=== PATIENT | male | born 1930 | race Hispanic/Latino ===

== ENCOUNTER 2017-09-09 15:56 | Inpatient (IN) | payer MEDICARE, OTHER ==
[~2017-09-09] VITALS: Ht 177.8 cm; Wt 61.0 kg
[2017-09-09 16:34] LABS: HEMATOCRIT 21.5 % (42-54); MEAN CORPUSCULAR HEMOGLOBIN 28.1 pg (27.0-33.0); MEAN CORPUSCULAR HGB CONC 30.7 g/dL (32.0-36.0); MEAN CORPUSCULAR VOLUME 91.4 fL (79-99); PLATELET COUNT (AUTO) 205 K/uL (130-400); RED BLOOD CELL COUNT(AUTO) 2.35 MIL/uL (4.50-6.20); RED CELL DISTRIBUTION WIDTH 14.2 % (11.0-15.5); WHITE BLOOD COUNT (AUTO) 25.9 K/uL (4.8-10.8)
[2017-09-09 16:45] LABS: CREATININE 2.3 mg/dL (0.5-1.5); POTASSIUM 5.7 mmol/L (3.5-5.1)
[2017-09-09] MEDS ORDERED: PANTOPRAZOLE SODIUM 80 MG in NS 100ML IVP SCH (16:45)
[2017-09-09 16:51] LABS: INR 0.98 (0.85-1.15); PARTIAL THROMBOPLASTIN TIME 22.2 SEC (26.3-35.5); PROTHROMBIN TIME 10.3 SEC (9.6-11.6)
[2017-09-09 17:09] LABS: ALBUMIN 3.8 g/dL (3.5-5.0); BILIRUBIN,TOTAL 0.4 mg/dL (0.2-1.0); CREATINE KINASE MB 2.6 ng/mL (0.5-3.6); TOTAL PROTEIN, SERUM 6.4 g/dL (6.0-8.3)
[2017-09-09 17:23] LABS: BASOPHILS % (MANUAL) 2 % (0-2); EOSINOPHILS % (MANUAL) 1 % (1-6); LYMPHOCYTES % (MANUAL) 79 % (22-44); MAN.DIFF COMMENT-IMPRESSION MANUAL DIFFERENTIAL; PLATELET MORPHOLOGY COMMENT ADEQUATE; REACTIVE LYMPHOCYTES 2 % (0-0); SEGMENTED NEUTROPHILS % 16 % (40-70)
[2017-09-09 17:43] LABS: APPEARANCE,URINE Clear (CLEAR); BILIRUBIN,URINE Negative (NEGATIVE); COLOR,URINE Yellow (YELLOW); GLUCOSE, URINE (UA) Negative (NEGATIVE); KETONES,URINE Trace mg/dL (NEGATIVE); LEUKOCYTE ESTERASE ,URINE Trace (NEGATIVE); NITRATE,URINE Negative (NEGATIVE); OCCULT BLOOD,URINE Negative (NEGATIVE); PROTEIN,URINE Negative (NEGATIVE); UROBILINOGEN,URINE 0.2 mg/dL (0.2-1.0)
[2017-09-09] MEDS ORDERED: ONDANSETRON HCL 4 MG/2 ML VIAL IV PRN (17:45)
[2017-09-09] MEDS ORDERED: MAG HYDROX/AL HYDROX/SIMETH ES 30 ML SUSP UDCUP PO PRN (17:45)
[2017-09-09] MEDS ORDERED: ACETAMINOPHEN-CODEINE 300/30MG TAB PO PRN (17:45)
[2017-09-09] MEDS ORDERED: ACETAMINOPHEN 325 MG TAB PO PRN ×2 (17:45)
[2017-09-09] MEDS ORDERED: GUAIFENESIN-DM 200/20 MG 10 ML PO PRN (17:45)
[2017-09-09 18:02] LABS: BACTERIA,URINE Few /HPF (None Seen); RBC,URINE None Seen /HPF (0-1); SQUAMOUS EPITHELIAL CELL,UR 0-2 /LPF (0-2)
[2017-09-09 18:14] LABS: RETICULOCYTE % (AUTO) 3.9 % (0.42-2.23)
[2017-09-09 18:37] LABS: % IRON SATURATION 3.8 % (30-44)
[2017-09-09] MEDS ORDERED: PEG 3350/NA SULF,BICARB,CL/KCL 4000 ML SOLN PO ONE (22:00)
[2017-09-09] MEDS ORDERED: LACTULOSE 20 GM/30 ML UDCUP ONE (22:18)
[2017-09-09] MEDS ORDERED: MAGNESIUM CITRATE 296 ML SOLUTION ONE (22:18)
[2017-09-09 23:05] VITALS: BP 126/64
[2017-09-10] VITALS (19 sets, daily range): BP systolic 25–140; BP diastolic 49–85
[2017-09-10] MEDS ORDERED: LISI10TA7 PO (00:44)
[2017-09-10] MEDS ORDERED: LEVO100T12 PO (00:44)
[2017-09-10] MEDS ORDERED: SIMV20TA6 PO (00:46)
[2017-09-10] MEDS ORDERED: CLOP75TA32 PO (00:46)
[2017-09-10] MEDS ORDERED: METF750T2 PO (00:46)
[2017-09-10] MEDS ORDERED: PEG 3350/NA SULF,BICARB,CL/KCL 4000 ML SOLN PO SCH (01:30)
[2017-09-10] MEDS: BISACODYL 5 MG TABLET.DR PO SCH (08:12)
[2017-09-10 08:19] LABS: HEMATOCRIT 26.6 % (42-54); MEAN CORPUSCULAR HEMOGLOBIN 29.7 pg (27.0-33.0); MEAN CORPUSCULAR HGB CONC 33.2 g/dL (32.0-36.0); MEAN CORPUSCULAR VOLUME 89.5 fL (79-99); NUCLEATED RED BLOOD CELLS 0.1 % (0.0-0.19); PLATELET COUNT (AUTO) 140 K/uL (130-400); RED BLOOD CELL COUNT(AUTO) 2.98 MIL/uL (4.50-6.20); RED CELL DISTRIBUTION WIDTH 14.3 % (11.0-15.5); WHITE BLOOD COUNT (AUTO) 15.7 K/uL (4.8-10.8)
[2017-09-10 08:27] LABS: CREATININE 2.2 mg/dL (0.5-1.5); POTASSIUM 4.9 mmol/L (3.5-5.1)
[2017-09-10] MEDS ORDERED: PANTOPRAZOLE SODIUM 80 MG in SODIUM CHLORIDE 0.9% 100 ML IV SCH (09:00)
[2017-09-10] MEDS ORDERED: MEPERIDINE-PF 50 MG/ML SYG ONE (16:33)
[2017-09-10] MEDS ORDERED: MIDAZOLAM HCL 1 MG/ML 2ML VIAL ONE (16:34)
[2017-09-10] MEDS ORDERED: FENTANYL CITRATE PF 50 MCG/1 ML 2ML VIAL ONE ×2 (16:36→17:10)
[2017-09-10] MEDS: ATORVASTATIN CALCIUM 10 MG TABLET PO SCH (20:35)
[2017-09-11] VITALS (8 sets, daily range): BP systolic 102–121; BP diastolic 44–69
[2017-09-11] MEDS: BISACODYL 5 MG TABLET.DR PO SCH (02:46)
[2017-09-11 04:30] LABS: HEMATOCRIT 22.6 % (42-54)
[2017-09-11 04:58] LABS: CREATININE 1.7 mg/dL (0.5-1.5); POTASSIUM 4.6 mmol/L (3.5-5.1)
[2017-09-11] MEDS: LEVOTHYROXINE 100 MCG TABLET PO SCH (06:34)
[2017-09-11] MEDS: METFORMIN HCL 750 MG PO SCH (09:00)
[2017-09-11] MEDS ORDERED: PANT40TA25 PO (09:30)
[2017-09-11] MEDS ORDERED: FERS325 PO (09:30)
[2017-09-11] MEDS: PANTOPRAZOLE SODIUM 40 MG TABLET.DR PO SCH (10:32)
[2017-09-11] MEDS: LISINOPRIL 10 MG TABLET PO SCH (10:32)
[2017-09-11] MEDS: ATORVASTATIN CALCIUM 10 MG TABLET PO SCH (21:54)
[2017-09-12] MEDS: BISACODYL 5 MG TABLET.DR PO SCH (02:00)
[2017-09-12 03:09] VITALS: BP 109/52
[2017-09-12 05:55] LABS: MEAN CORPUSCULAR HEMOGLOBIN 29.2 pg (27.0-33.0); MEAN CORPUSCULAR HGB CONC 33.2 g/dL (32.0-36.0); MEAN CORPUSCULAR VOLUME 88.1 fL (79-99); PLATELET COUNT (AUTO) 102 K/uL (130-400); RED BLOOD CELL COUNT(AUTO) 3.41 MIL/uL (4.50-6.20); RED CELL DISTRIBUTION WIDTH 14.5 % (11.0-15.5); WHITE BLOOD COUNT (AUTO) 11.5 K/uL (4.8-10.8)
[2017-09-12 06:04] LABS: CREATININE 1.5 mg/dL (0.5-1.5); POTASSIUM 4.3 mmol/L (3.5-5.1)
[2017-09-12] MEDS: LEVOTHYROXINE 100 MCG TABLET PO SCH (06:05)
[2017-09-12 08:00] VITALS: BP 106/62
[2017-09-12] MEDS: METFORMIN HCL 750 MG PO SCH (09:00)
[2017-09-12] MEDS: LISINOPRIL 10 MG TABLET PO SCH (09:00)
[2017-09-12] MEDS: PANTOPRAZOLE SODIUM 40 MG TABLET.DR PO SCH (09:09)
[2017-09-12 12:00] VITALS: BP 130/65
== END 2017-09-12 15:50 | disposition home or self-care (01) | DRG 378 ==
LOC: EDH 15:56 → OBSVTOIN 17:33 → EDHIP 17:33 → 3CH 21:50
PROVIDERS: ADMIT Family Medicine; ATTEND Family Medicine
PROC: 30233N1 Transfusion of Nonautologous Red Blood Cells into Peripheral Vein, Percutaneous Approach (ICD-10-PCS; 2017-09-09)
PROC: 0W3P8ZZ Control Bleeding in Gastrointestinal Tract, Via Natural or Artificial Opening Endoscopic (ICD-10-PCS; principal; 2017-09-10)
PROC: 0DB68ZX Excision of Stomach, Via Natural or Artificial Opening Endoscopic, Diagnostic (ICD-10-PCS; 2017-09-10)
PROC: 0DB48ZX Excision of Esophagogastric Junction, Via Natural or Artificial Opening Endoscopic, Diagnostic (ICD-10-PCS; 2017-09-10)
PROC: 30233N1 Transfusion of Nonautologous Red Blood Cells into Peripheral Vein, Percutaneous Approach (ICD-10-PCS; 2017-09-10)
PROC: 30233N1 Transfusion of Nonautologous Red Blood Cells into Peripheral Vein, Percutaneous Approach (ICD-10-PCS; 2017-09-11)
DX: K55.21 Angiodysplasia of colon with hemorrhage (principal); D62 Acute posthemorrhagic anemia; C91.10 Chronic lymphocytic leukemia of B-cell type not having achieved remission; E11.22 Type 2 diabetes mellitus with diabetic chronic kidney disease; E11.65 Type 2 diabetes mellitus with hyperglycemia; K29.01 Acute gastritis with bleeding; N18.3 Chronic kidney disease, stage 3 (moderate); K21.0 Gastro-esophageal reflux disease with esophagitis; K29.00 Acute gastritis without bleeding; K57.30 Diverticulosis of large intestine without perforation or abscess without bleeding; K64.8 Other hemorrhoids; E03.9 Hypothyroidism, unspecified; I25.10 Atherosclerotic heart disease of native coronary artery without angina pectoris; K27.9 Peptic ulcer, site unspecified, unspecified as acute or chronic, without hemorrhage or perforation; Z79.02 Long term (current) use of antithrombotics/antiplatelets; E78.5 Hyperlipidemia, unspecified; I12.9 Hypertensive chronic kidney disease with stage 1 through stage 4 chronic kidney disease, or unspecified chronic kidney disease; Z95.5 Presence of coronary angioplasty implant and graft; Z79.899 Other long term (current) drug therapy; Z87.891 Personal history of nicotine dependence; Z83.3 Family history of diabetes mellitus; Z82.49 Family history of ischemic heart disease and other diseases of the circulatory system
CPT/HCPCS: 36415; 36430; 71045; 74176; 80048; 80053; 81001; 82150; 82270; 82550; 82553; 82607; 82728; 82746; 83690; 85025; 85027; 85610; 85730; 86677; 86850; 86900; 86901; 86922; 88305; 88312; 88342; 93005; 99291; C9113; J2175; J2250; J3010; P9016

== ENCOUNTER 2018-05-20 09:45 | Inpatient (IN) | payer OTHER ==
[2018-05-20] VITALS (10 sets, daily range): BP systolic 122–142; BP diastolic 51–63
[~2018-05-20] VITALS: Ht 177.8 cm; Wt 61.7 kg
[~2018-05-20 09:45] MED LIST: LEVO100T12 PO; OMEP20CA10 PO; SIMV20TA6 PO
[2018-05-20 10:35] LABS: BASOPHILS % (AUTO) 0.4 % (0.0-5.0); EOSINOPHILS % (AUTO) 0.2 % (0.0-8.0); HEMATOCRIT 24.1 % (42-54); LYMPHOCYTES % (AUTO) 69.8 % (21.0-51.0); MEAN CORPUSCULAR HEMOGLOBIN 32.8 pg (27.0-33.0); MEAN CORPUSCULAR HGB CONC 32.4 g/dL (32.0-36.0); MEAN CORPUSCULAR VOLUME 101.4 fL (79-99); MONOCYTES % (AUTO) 0.8 % (3.0-13.0); NEUTROPHILS % (AUTO) 28.8 % (40.0-77.0); PLATELET COUNT (AUTO) 136 K/uL (130-400); RED BLOOD CELL COUNT(AUTO) 2.37 MIL/uL (4.50-6.20); WHITE BLOOD COUNT (AUTO) 9.8 K/uL (4.8-10.8)
[2018-05-20 10:48] LABS: PARTIAL THROMBOPLASTIN TIME 32.9 SEC (26.3-35.5); PROTHROMBIN TIME 10.5 SEC (9.6-11.6)
[2018-05-20 10:49] LABS: CREATININE 1.8 mg/dL (0.5-1.5); POTASSIUM 4.7 mmol/L (3.5-5.1)
[2018-05-20 10:53] LABS: ALBUMIN 3.2 g/dL (3.5-5.0); BILIRUBIN,DIRECT 0.1 mg/dL (0.0-0.3); BILIRUBIN,TOTAL 0.5 mg/dL (0.2-1.0); TOTAL PROTEIN, SERUM 6.2 g/dL (6.0-8.3)
[2018-05-20] MEDS ORDERED: LACTATED RINGERS 1000ML 1,000 ML IV ONE (12:38)
[2018-05-20] MEDS ORDERED: SODIUM CHLORIDE 0.9% 100 ML IV ONE (14:49)
[2018-05-20 17:16] LABS: HEMATOCRIT 23.6 % (42-54)
[2018-05-20] MEDS ORDERED: PANTOPRAZOLE SODIUM 80 MG in NS 100ML IVP SCH (17:30)
[2018-05-20] MEDS ORDERED: ONDANSETRON HCL 4 MG/2 ML VIAL IVP PRN (18:15)
[2018-05-20] MEDS ORDERED: LABETALOL HCL 5 MG/ML 20ML VIAL IV PRN (18:15)
[2018-05-20] MEDS ORDERED: ACETAMINOPHEN 325 MG TAB PO PRN ×2 (18:15)
[2018-05-20] MEDS ORDERED: HYDROCODONE/ACETAMINOPHEN 5/325 MG TAB PO PRN (18:15)
[2018-05-20] MEDS ORDERED: DEXTROSE 50%-WATER 50 ML DISP.SYRIN IV PRN (18:15)
[2018-05-20] MEDS ORDERED: MORPHINE SULFATE 2 MG/ML 1ML SYG IVP PRN (18:15)
[2018-05-20] MEDS ORDERED: GLUCAGON 1MG KIT 1 MG ML IM PRN (18:15)
[2018-05-20] MEDS ORDERED: LACTULOSE 20 GM/30 ML UDCUP PO SCH (19:30)
[2018-05-20] MEDS ORDERED: LISI10TA7 PO (19:37)
[2018-05-20] MEDS ORDERED: CLOP75TA14 PO (19:37)
[2018-05-20] MEDS: LACTATED RINGERS 1000ML 1,000 ML IV SCH (19:44)
[2018-05-20] MEDS ORDERED: PEG 3350/NA SULF,BICARB,CL/KCL 4000 ML SOLN PO ONE (20:30)
[2018-05-20] MEDS ORDERED: BISACODYL 5 MG TABLET.DR PO ONE (21:00)
[2018-05-20 22:09] LABS: HEMATOCRIT 25.2 % (42-54)
[2018-05-21] VITALS (19 sets, daily range): BP systolic 78–133; BP diastolic 36–97
[2018-05-21 04:42] LABS: MEAN CORPUSCULAR HEMOGLOBIN 33.2 pg (27.0-33.0); MEAN CORPUSCULAR HGB CONC 33.1 g/dL (32.0-36.0); MEAN CORPUSCULAR VOLUME 100.4 fL (79-99); PLATELET COUNT (AUTO) 126 K/uL (130-400); RED BLOOD CELL COUNT(AUTO) 2.03 MIL/uL (4.50-6.20); WHITE BLOOD COUNT (AUTO) 6.4 K/uL (4.8-10.8)
[2018-05-21 04:55] LABS: CREATININE 1.5 mg/dL (0.5-1.5); POTASSIUM 3.9 mmol/L (3.5-5.1)
[2018-05-21 04:56] LABS: INR 1.06 (0.85-1.15); PARTIAL THROMBOPLASTIN TIME 36.6 SEC (26.3-35.5); PROTHROMBIN TIME 11.1 SEC (9.6-11.6)
[2018-05-21 05:03] LABS: HEMATOCRIT 20.4 % (42-54)
[2018-05-21] MEDS ORDERED: SODIUM CHLORIDE 0.9% 250 ML IV ONE (05:27)
[2018-05-21] MEDS: INSULIN R NPO SS1/2 SQ SCH ×4 (06:00→18:00)
[2018-05-21 10:45] LABS: HEMATOCRIT 25.1 % (42-54)
[2018-05-21] MEDS ORDERED: PROPOFOL 10 MG/ML 20ML VIAL IV ONE (11:05)
[2018-05-21] MEDS ORDERED: SIMETHICONE 80 MG TAB.CHEW ONE (11:42)
[2018-05-21] MEDS ORDERED: PHENYLEPHRINE HCL 10 MG/ML 1ML VIAL IV ONE (11:50)
[2018-05-21] MEDS: LACTATED RINGERS 1000ML 1,000 ML IV SCH (12:26)
[2018-05-22] VITALS (23 sets, daily range): BP systolic 93–122; BP diastolic 44–77
[2018-05-22] MEDS: LACTATED RINGERS 1000ML 1,000 ML IV SCH ×3 (02:28→23:55)
[2018-05-22 04:01] LABS: BASOPHILS % (AUTO) 0.1 % (0.0-5.0); EOSINOPHILS % (AUTO) 0.1 % (0.0-8.0); HEMATOCRIT 23.1 % (42-54); LYMPHOCYTES % (AUTO) 68.8 % (21.0-51.0); MEAN CORPUSCULAR HEMOGLOBIN 32.4 pg (27.0-33.0); MEAN CORPUSCULAR HGB CONC 33.3 g/dL (32.0-36.0); MEAN CORPUSCULAR VOLUME 97.3 fL (79-99); MONOCYTES % (AUTO) 1.2 % (3.0-13.0); NEUTROPHILS % (AUTO) 29.8 % (40.0-77.0); NUCLEATED RED BLOOD CELLS 0.1 % (0.0-0.19); PLATELET COUNT (AUTO) 108 K/uL (130-400); RED BLOOD CELL COUNT(AUTO) 2.37 MIL/uL (4.50-6.20); RED CELL DISTRIBUTION WIDTH 17.8 % (11.0-15.5); WHITE BLOOD COUNT (AUTO) 5.5 K/uL (4.8-10.8)
[2018-05-22 04:27] LABS: CREATININE 1.4 mg/dL (0.5-1.5); POTASSIUM 4.2 mmol/L (3.5-5.1)
[2018-05-22] MEDS: INSULIN R NPO SS1/2 SQ SCH ×4 (06:00→17:03)
[2018-05-22] MEDS ORDERED: PROPOFOL 10 MG/ML 20ML VIAL IV ONE ×2 (10:15→10:16)
[2018-05-22] MEDS ORDERED: SIMETHICONE 40 MG/0.6 ML ML ONE (10:35)
[2018-05-22] MEDS: PANTOPRAZOLE SODIUM 40 MG TABLET.DR PO SCH (12:10)
[2018-05-22 18:42] LABS: HEMATOCRIT 25.9 % (42-54)
[2018-05-23 04:03] VITALS: BP 118/59
[2018-05-23] MEDS: INSULIN R NPO SS1/2 SQ SCH ×3 (05:56→11:43)
[2018-05-23 07:51] VITALS: BP 122/59
[2018-05-23] MEDS: PANTOPRAZOLE SODIUM 40 MG TABLET.DR PO SCH (10:41)
[2018-05-23 11:34] VITALS: BP 109/47
[2018-05-23] MEDS: LACTATED RINGERS 1000ML 1,000 ML IV SCH (12:49)
== END 2018-05-23 14:10 | disposition home or self-care (01) | DRG 378 ==
LOC: EDH 09:45 → EDHIP 11:40 → 2CH 16:06 → 2AH 05-21 15:19
PROVIDERS: ADMIT Internal Medicine Critical Care Medicine; ATTEND Internal Medicine Critical Care Medicine
PROC: 0DJD8ZZ Inspection of Lower Intestinal Tract, Via Natural or Artificial Opening Endoscopic (ICD-10-PCS; 2018-05-21)
PROC: 0DJ08ZZ Inspection of Upper Intestinal Tract, Via Natural or Artificial Opening Endoscopic (ICD-10-PCS; 2018-05-21)
PROC: 30233N1 Transfusion of Nonautologous Red Blood Cells into Peripheral Vein, Percutaneous Approach (ICD-10-PCS; principal; 2018-05-22)
PROC: 3E0234Z Introduction of Serum, Toxoid and Vaccine into Muscle, Percutaneous Approach (ICD-10-PCS; 2018-05-22)
PROC: 0DH Gastrointestinal System, Insertion (ICD-10-PCS; 2018-05-22)
DX: K29.01 Acute gastritis with bleeding (principal); D62 Acute posthemorrhagic anemia; C91.10 Chronic lymphocytic leukemia of B-cell type not having achieved remission; K57.31 Diverticulosis of large intestine without perforation or abscess with bleeding; I10 Essential (primary) hypertension; I25.10 Atherosclerotic heart disease of native coronary artery without angina pectoris; E78.5 Hyperlipidemia, unspecified; E11.9 Type 2 diabetes mellitus without complications; K21.0 Gastro-esophageal reflux disease with esophagitis; K64.0 First degree hemorrhoids; E03.9 Hypothyroidism, unspecified; Z95.5 Presence of coronary angioplasty implant and graft; Z87.891 Personal history of nicotine dependence; Z86.010 Personal history of colon polyps; Z23 Encounter for immunization; Z83.3 Family history of diabetes mellitus; Z82.49 Family history of ischemic heart disease and other diseases of the circulatory system
CPT/HCPCS: 36415; 36430; 43235; 45378; 80048; 80076; 82270; 82550; 82948; 83690; 85014; 85018; 85025; 85027; 85384; 85610; 85730; 86850; 86880; 86900; 86901; 86922; 93005; 94010; C9113; J2370; J2704; J7030; J7120; P9016; Q2038

== ENCOUNTER 2018-06-23 17:31 | Inpatient (IN) | payer OTHER ==
[2018-06-23] VITALS (15 sets, daily range): BP systolic 79–118; BP diastolic 43–64
[~2018-06-23] VITALS: Ht 167.6 cm; Wt 63.4 kg
[~2018-06-23 17:31] MED LIST changes: +ATROPINE SULFATE 0.1 MG/ML 10 ML SYG IVP ONE; +DOPAMINE HCL 400 MG/D5%-WATER 250 ML IV ONE; +EPINEPHRINE 0.1 MG/ML 10 ML SYG IVP ONE; +LISI10TA7 PO
[2018-06-23 17:54] LABS: BASOPHILS % (AUTO) 0.1 % (0.0-5.0); HEMATOCRIT 28.4 % (42-54); LYMPHOCYTES % (AUTO) 92.9 % (21.0-51.0); MEAN CORPUSCULAR HEMOGLOBIN 30.1 pg (27.0-33.0); MEAN CORPUSCULAR HGB CONC 29.6 g/dL (32.0-36.0); MEAN CORPUSCULAR VOLUME 101.6 fL (79-99); PLATELET COUNT (AUTO) 263 K/uL (130-400); RED CELL DISTRIBUTION WIDTH 19.9 % (11.0-15.5)
[2018-06-23 17:58] LABS: CREATININE 1.8 mg/dL (0.5-1.5); POTASSIUM 4.2 mmol/L (3.5-5.1)
[2018-06-23 18:02] LABS: INR 1.15 (0.85-1.15); PARTIAL THROMBOPLASTIN TIME 36.3 SEC (26.3-35.5)
[2018-06-23 18:03] LABS: ALBUMIN 2.2 g/dL (3.5-5.0); BILIRUBIN,TOTAL 0.2 mg/dL (0.2-1.0); TOTAL PROTEIN, SERUM 5.1 g/dL (6.0-8.3)
[2018-06-23 18:04] LABS: WHITE BLOOD COUNT (AUTO) 32.8 K/uL (4.8-10.8)
[2018-06-23 18:15] LABS: ABG HCO3 12.7 mmol/L (21.0-28.0); ABG OXYGEN SATURATION 99.8 % (95.0-99.0); ABG PCO2 40 mmHg (35-48)
[2018-06-23] MEDS ORDERED: ZOSYN 3.375GM+NS 50ML 50 ML IV ONE (18:28)
[2018-06-23 18:29] LABS: BAND NEUTROPHILS % (MANUAL) 2 % (0-2); LYMPHOCYTES % (MANUAL) 82 % (22-44); MAN.DIFF COMMENT-IMPRESSION MANUAL DIFFERENTIAL; REACTIVE LYMPHOCYTES 9 % (0-0); SEGMENTED NEUTROPHILS % 7 % (40-70)
[2018-06-23] MEDS ORDERED: SODIUM CHLORIDE 0.9% 200 ML IV ONE (18:29)
[2018-06-23] MEDS ORDERED: VANCOMYCIN 1GM+NS 250ML 250 ML IV ONE (18:29)
[2018-06-23] MEDS ORDERED: OCTREOTIDE ACETATE 200 MCG/ML 5 ML VIAL ONE (18:31)
[2018-06-23 18:36] LABS: PLATELET MORPHOLOGY COMMENT PLT CLUMPS PRESENT
[2018-06-23] MEDS ORDERED: ONDANSETRON HCL 4 MG/2 ML VIAL IV PRN (19:30)
[2018-06-23] MEDS ORDERED: OCTREOTIDE ACETATE 1,000 MCG in SODIUM CHLORIDE 0.9% 95 ML IV SCH (19:30)
[2018-06-23] MEDS ORDERED: VANCOMYCIN PROTOCOL PER PHARMACY IV SCH (19:30)
[2018-06-23] MEDS ORDERED: DOPAMINE 800MG/D5 250ML 250 ML IV PRN (19:30)
[2018-06-23] MEDS: ZOSYN 3.375GM+NS 50ML 50 ML IV SCH (19:30)
[2018-06-23] MEDS ORDERED: ACETAMINOPHEN 325 MG TAB PO PRN (19:30)
[2018-06-23] MEDS ORDERED: MAGNESIUM 2GM PREMIX 50ML 50 ML IV PRN (19:45)
[2018-06-23] MEDS ORDERED: DEXTROSE 50%-WATER 50 ML DISP.SYRIN IV PRN (19:45)
[2018-06-23] MEDS ORDERED: LIDOCAINE HCL-MPF 1% 2ML VIAL IVP PRN (19:45)
[2018-06-23] MEDS ORDERED: GLUCAGON 1MG KIT 1 MG ML IM PRN (19:45)
[2018-06-23] MEDS ORDERED: POTASSIUM CHLORIDE 20MEQ/100ML 100 ML IV PRN (19:45)
[2018-06-23] MEDS ORDERED: SODIUM CHLORIDE 0.9% 1000ML 1,000 ML IV ONE ×2 (20:15→20:20)
[2018-06-23] MEDS ORDERED: PANTOPRAZOLE SODIUM 80 MG in SODIUM CHLORIDE 0.9% 100 ML IV SCH (20:15)
[2018-06-23] MEDS ORDERED: PROPOFOL 1000 MG/100 ML IV PRN (20:15)
[2018-06-23] MEDS ORDERED: MIDAZOLAM 100MG-0.9% NS 100ML 100 ML IV PRN (21:45)
[2018-06-23] MEDS ORDERED: NOREPINEPHRINE 4MG/NS 250ML 250 ML IV SCH (21:45)
[2018-06-23] MEDS ORDERED: SODIUM BICARB 8.4% 50ML SYRING 150 MEQ in DEXTROSE 5%-WATER 1,000 ML IV SCH (21:45)
[2018-06-23] MEDS ORDERED: FENTANYL 2500MCG+NS 250ML 250 ML IV PRN (21:45)
[2018-06-23 22:04] LABS: ABG BASE EXCESS -6.6 mmol/L (-2.0-3.0); ABG HCO3 17.5 mmol/L (21.0-28.0); ABG OXYGEN SATURATION 94.9 % (95.0-99.0); ABG PCO2 31 mmHg (35-48)
[2018-06-23] MEDS: DOXYCYCLINE 100MG+NS 250ML 250 ML IV SCH (22:24)
[2018-06-23] MEDS: SODIUM CHLORIDE 0.9% 1000ML 1,000 ML IV SCH (22:25)
[2018-06-23] MEDS: ARTIFICAL TEARS SOL 15 ML OU SCH (22:27)
[2018-06-23 22:55] LABS: BASOPHILS % (AUTO) 0.1 % (0.0-5.0); EOSINOPHILS % (AUTO) 0.1 % (0.0-8.0); HEMATOCRIT 30.1 % (42-54); LYMPHOCYTES % (AUTO) 67.5 % (21.0-51.0); MEAN CORPUSCULAR HEMOGLOBIN 29.4 pg (27.0-33.0); MEAN CORPUSCULAR HGB CONC 31.2 g/dL (32.0-36.0); MEAN CORPUSCULAR VOLUME 94.2 fL (79-99); MONOCYTES % (AUTO) 0.6 % (3.0-13.0); NEUTROPHILS % (AUTO) 31.7 % (40.0-77.0); NUCLEATED RED BLOOD CELLS 0.2 % (0.0-0.19); PLATELET COUNT (AUTO) 250 K/uL (130-400); RED CELL DISTRIBUTION WIDTH 18.9 % (11.0-15.5)
[2018-06-23 23:00] LABS: APPEARANCE,URINE Cloudy (CLEAR); BILIRUBIN,URINE Negative (NEGATIVE); COLOR,URINE Yellow (YELLOW); GLUCOSE, URINE (UA) 250 mg/dL (NEGATIVE); KETONES,URINE Negative (NEGATIVE); LEUKOCYTE ESTERASE ,URINE Moderate (NEGATIVE); NITRATE,URINE Negative (NEGATIVE); OCCULT BLOOD,URINE Large (NEGATIVE); PROTEIN,URINE 300 (NEGATIVE); UROBILINOGEN,URINE 0.2 mg/dL (0.2-1.0)
[2018-06-23 23:01] LABS: WHITE BLOOD COUNT (AUTO) 30.6 K/uL (4.8-10.8)
[2018-06-23 23:06] LABS: AMPHET/METH SCREEN,URINE NEGATIVE (NEGATIVE); BARBITURATE SCREEN, URINE NEGATIVE (NEGATIVE); BENZODIAZEPINES SCREEN,URINE NEGATIVE (NEGATIVE); CANNABINOID SCREEN,URINE NEGATIVE (NEGATIVE); COCAINE SCREEN,URINE NEGATIVE (NEGATIVE); OPIATE SCREEN,URINE NEGATIVE (NEGATIVE); PHENCYCLIDINE SCREEN,URINE NEGATIVE (NEGATIVE)
[2018-06-23 23:19] LABS: AMORPHOUS SEDIMENT,UR Moderate /LPF (None Seen); BACTERIA,URINE Moderate /HPF (None Seen); MUCUS,URINE Moderate LPF (None Seen); SQUAMOUS EPITHELIAL CELL,UR Few /HPF (0-2); WBC,URINE 26-50 /HPF (0-1)
[2018-06-23 23:28] LABS: ALBUMIN 2.2 g/dL (3.5-5.0); BILIRUBIN,TOTAL 0.6 mg/dL (0.2-1.0); CREATININE 1.9 mg/dL (0.5-1.5); POTASSIUM 4.5 mmol/L (3.5-5.1)
[2018-06-23 23:34] LABS: TROPONIN I 2.59 ng/mL (0.00-0.06)
[2018-06-23] MEDS: IPRATROPIUM/ALBUTEROL SULFATE 3 ML SOLUTION IH SCH (23:49)
[2018-06-24] VITALS (53 sets, daily range): BP systolic 82–135; BP diastolic 44–67
[2018-06-24] MEDS: INSULIN HUMULIN R 100 UNIT/ML 3ML SQ SCH ×4 (00:06→17:34)
[2018-06-24] MEDS: SODIUM CHLORIDE 0.9% 1000ML 1,000 ML IV SCH ×3 (04:05→13:35)
[2018-06-24] MEDS: ZOSYN 3.375GM+NS 50ML 50 ML IV SCH ×2 (04:05→12:00)
[2018-06-24] MEDS: ARTIFICAL TEARS SOL 15 ML OU SCH ×2 (04:05→08:34)
[2018-06-24 05:26] LABS: HEMOGLOBIN A1C 6.4 % (4.0-6.0)
[2018-06-24 05:27] LABS: BASOPHILS % (AUTO) 0.2 % (0.0-5.0); HEMATOCRIT 29.9 % (42-54); LYMPHOCYTES % (AUTO) 58.8 % (21.0-51.0); MEAN CORPUSCULAR HEMOGLOBIN 30.8 pg (27.0-33.0); MEAN CORPUSCULAR HGB CONC 32.9 g/dL (32.0-36.0); MEAN CORPUSCULAR VOLUME 93.4 fL (79-99); MONOCYTES % (AUTO) 0.9 % (3.0-13.0); NEUTROPHILS % (AUTO) 40.1 % (40.0-77.0); NUCLEATED RED BLOOD CELLS 0.1 % (0.0-0.19); PLATELET COUNT (AUTO) 222 K/uL (130-400); RED CELL DISTRIBUTION WIDTH 19.2 % (11.0-15.5); WHITE BLOOD COUNT (AUTO) 23.5 K/uL (4.8-10.8)
[2018-06-24 06:14] LABS: ALBUMIN 2.2 g/dL (3.5-5.0); BILIRUBIN,TOTAL 0.5 mg/dL (0.2-1.0); CREATININE 2.2 mg/dL (0.5-1.5); MAGNESIUM 1.7 mg/dL (1.80-2.40); POTASSIUM 4.4 mmol/L (3.5-5.1); TOTAL PROTEIN, SERUM 4.9 g/dL (6.0-8.3)
[2018-06-24 06:20] LABS: TROPONIN I 11.23 ng/mL (0.00-0.06)
[2018-06-24] MEDS ORDERED: LEVOTHYROXINE 100 MCG VIAL IV SCH (06:30)
[2018-06-24] MEDS: IPRATROPIUM/ALBUTEROL SULFATE 3 ML SOLUTION IH SCH ×2 (07:21→11:04)
[2018-06-24 08:27] LABS: ABG BASE EXCESS -1.1 mmol/L (-2.0-3.0); ABG HCO3 19.1 mmol/L (21.0-28.0); ABG OXYGEN SATURATION 99.3 % (95.0-99.0); ABG PCO2 23 mmHg (35-48)
[2018-06-24] MEDS: DOXYCYCLINE 100MG+NS 250ML 250 ML IV SCH (08:34)
[2018-06-24] MEDS ORDERED: PANTOPRAZOLE 40 MG/VIAL IVP SCH (09:00)
[2018-06-24] MEDS ORDERED: PHARMACY COMMUNICATION MISC SCH (13:15)
[2018-06-24] MEDS ORDERED: ARTIFICAL TEARS SOL 15 ML OU SCH (13:27)
[2018-06-24] MEDS ORDERED: MORPHINE-NS 50 MG/50 ML 50 ML IV PRN (13:30)
[2018-06-24] MEDS ORDERED: VANCOMYCIN 1GM+NS 250ML 250 ML IV SCH (18:00)
[2018-06-24] MEDS ORDERED: LORAZEPAM 2 MG/ML 1 ML VIAL ONE (18:58)
[2018-06-25 00:55] VITALS: BP 98/48
[2018-06-25 03:40] VITALS: BP 90/43
[2018-06-25] MEDS: SODIUM CHLORIDE 0.9% 1000ML 1,000 ML IV SCH (04:20)
== END 2018-06-25 07:53 | disposition expired | DRG 871 ==
LOC: EDH 17:31 → EDHIP 18:39 → 2CH 19:50 → 3BH 06-25 00:33
PROVIDERS: ADMIT Internal Medicine; ATTEND Internal Medicine
PROC: 5A1935Z Respiratory Ventilation, Less than 24 Consecutive Hours (ICD-10-PCS; principal; 2018-06-23)
PROC: 0BH17EZ Insertion of Endotracheal Airway into Trachea, Via Natural or Artificial Opening (ICD-10-PCS; 2018-06-23)
PROC: 5A12012 Performance of Cardiac Output, Single, Manual (ICD-10-PCS; 2018-06-23)
DX: A41.50 Gram-negative sepsis, unspecified (principal); R65.21 Severe sepsis with septic shock; J96.01 Acute respiratory failure with hypoxia; E43 Unspecified severe protein-calorie malnutrition; I21.4 Non-ST elevation (NSTEMI) myocardial infarction; N39.0 Urinary tract infection, site not specified; G93.1 Anoxic brain damage, not elsewhere classified; I47.2 Ventricular tachycardia; N17.9 Acute kidney failure, unspecified; Z99.11 Dependence on respirator [ventilator] status; Z66 Do not resuscitate; I49.01 Ventricular fibrillation; I46.2 Cardiac arrest due to underlying cardiac condition; I25.5 Ischemic cardiomyopathy; I12.9 Hypertensive chronic kidney disease with stage 1 through stage 4 chronic kidney disease, or unspecified chronic kidney disease; D89.9 Disorder involving the immune mechanism, unspecified; E03.9 Hypothyroidism, unspecified; E11.22 Type 2 diabetes mellitus with diabetic chronic kidney disease; E11.65 Type 2 diabetes mellitus with hyperglycemia; E78.5 Hyperlipidemia, unspecified; I25.10 Atherosclerotic heart disease of native coronary artery without angina pectoris; K57.90 Diverticulosis of intestine, part unspecified, without perforation or abscess without bleeding; N18.9 Chronic kidney disease, unspecified; R57.1 Hypovolemic shock; Z95.5 Presence of coronary angioplasty implant and graft; Z68.22 Body mass index [BMI] 22.0-22.9, adult; Z79.84 Long term (current) use of oral hypoglycemic drugs
CPT/HCPCS: 36415; 36600; 71045; 80053; 80061; 80305; 81001; 82270; 82550; 82803; 82948; 83036; 83605; 83735; 83874; 84484; 85025; 85060; 85610; 85730; 86850; 86900; 86901; 86922; 87040; 87046; 87071; 87077; 87088; 87186; 87205; 87324; 92950; 93005; 93306; 94002; 94003; 94640; 94664; 94770; 99291; C9113; J0171; J0461; J1265; J1815; J2060; J2270; J2354; J2543; J3010; J3370; J3475; J3490; J7030; J7070